=== PATIENT | female | born 1965 | race Caucasian/White ===

== ENCOUNTER 2023-12-25 06:25 | Emergency (ER) | payer OTHER ==
[~2023-12-25] VITALS: Ht 157.5 cm; Wt 79.0 kg
[2023-12-25 06:35] VITALS: O2SAT 99
[2023-12-25] MEDS ORDERED: VALA100044 MT (08:17)
[2023-12-25] MEDS ORDERED: TRAM50TA3 MT (08:17)
[2023-12-25] MEDS ORDERED: DOXY100T28 MT (08:17)
[2023-12-25] MEDS ORDERED: NAPR-681 MT (08:17)
[2023-12-25 08:34] VITALS: BP 150/85; PULSE 86; RESP 18; TEMP 97.8
== END 2023-12-25 09:23 | disposition home or self-care (01) ==
LOC: ER 06:49
DX: B02.9 Zoster without complications (principal); L03.114 Cellulitis of left upper limb; Z98.890 Other specified postprocedural states
CPT/HCPCS: 82962; 99283